=== PATIENT | female | born 1965 | race Caucasian/White ===

== ENCOUNTER 2017-09-14 08:00 | Outpatient (CLI) | payer MEDICARE ==
[~2017-09-14 08:00] MED LIST: ATROVENT 0.02%2.5 ML UPD; DILANTIN100 MG; ENULOSE10 G/15 ML PO; HYDRALAZINE HCL50 MG; KLONOPIN0.5 MG PO; LYRICA100 MG PO; LYRICA50 MG PO; PHENERGAN25 M1 PO; PRILOSEC20 MG PO; REGLAN5 MG PO; RENVELA800 MG PO; SENSIPAR60 MG; SINGULAIR10 MG PO; SYMBICORT 80-10.2 GM INH; TESSALON PERLE100 MG; XANAX0.25 MG PO; ZOCOR20 MG PO
== END 2017-09-14 11:11 | disposition home or self-care (01) ==
LOC: D.MAMMO 08:00
DX: Z12.31 Encounter for screening mammogram for malignant neoplasm of breast (principal)

== ENCOUNTER → 2017-11-18 22:43 | Outpatient (CLI) | payer MEDICARE ==
[~2017-11-18 22:43] MED LIST changes: +PEPCID40 MG PO
== END | disposition home or self-care (01) ==
LOC: D.MAMMO 10-11 13:30
DX: R92.8 Other abnormal and inconclusive findings on diagnostic imaging of breast (principal)

== ENCOUNTER → 2017-12-08 08:55 | Day surgery (SDC) | payer MEDICARE ==
[~2017-12-08] VITALS: Ht 152.4 cm; Wt 58.6 kg
--- NOTE | ~2017-12-08 | OP ---
PATIENT NAME: ADRYAN HENAO MEDICAL RECORD: [id number] :69 LOCATION:D.OPS ADMISSION DATE: SURGEON: MAREK THORPE DO DATE OF OPERATION: 12/08/2017 PROCEDURE: Colonoscopy with polypectomy. INDICATIONS FOR PROCEDURE: History of colon polyps. SCOPE: Olympus video pediatric colonoscope. MEDICATIONS: Propofol 500 mg IV per anesthesia. WITHDRAWAL TIME: 16 minutes. ESTIMATED BLOOD LOSS: Minimal. COMPLICATIONS: None. FINDINGS AND TECHNIQUE: Informed consent was given. The patient was made comfortable with the above medication. After reaching an adequate level of sedation by slow IV push, the patient was placed on her left side. A digital rectal examination was performed and was normal. The endoscope was then advanced under direct visualization through the rectum to the cecum, confirmed by the presence of the appendiceal orifice and ileocecal valve. The endoscope was slowly withdrawn and mucosa was carefully examined. Quality of the prep was good. There were 3 polyps seen on today's examination. Two were located in the transverse colon. They were both benign-appearing and sessile. They ranged in size from 4 to 6 mm in diameter. One was removed using a hot snare and the other was removed using hot forceps. Both were completely removed and retrieved. There was a third polyp located in the descending colon which was benign appearing and sessile. It measured approximately 9 mm in diameter. It was removed using a hot snare in 1 piece and completely retrieved. There were no other abnormalities visualized on today's examination other than some grade I internal hemorrhoids upon retroflexion. There were no diverticula seen today. The remainder of the examination was normal. The endoscope was withdrawn from the patient. The patient tolerated the procedure well and there were no complications. IMPRESSION: 1. Three polyps as described above were completely removed using a combination of hot forceps and hot snare. 2. Grade I internal hemorrhoids without bleeding. PLAN AND RECOMMENDATIONS: 1. Discharge home when recovery parameters are met. 2. Follow up biopsy specimen results. 3. Continue current diet. 4. Continue current medications. 5. Recall colonoscopy in 3 years for surveillance of a personal history of colon polyps. TRANSINT:[id number] Voice Confirmation ID: [id number] DOCUMENT ID: [id number] OPERATIVE REPORT [id number] ADRYAN HENAO MAREK THORPE DO at 1048 CC: [id number] DICTATION DATE: 12/08/17 1042 GRANULATING BLENDER: 12/08/17 1128 [facility] [place] 12/08/17 [facility] [address] [place] [address]
[2017-12-08 09:10] LABS: BASOPHILS 0.6 % (0-2); EOSINOPHILS 5.2 % (0-7); HEMATOCRIT 34.7 % (36.0-48.0); HEMOGLOBIN 11.5 g/dL (12-16); IMMATURE GRANULOCYTES 0.1 % (0-5); LYMPHOCYTES 30.7 % (15-50); MCHC 33.1 g/dL (31.0-37.0); MCV 96.7 fL (80.0-100.0); MEAN PLATELET VOLUME 11.5 fL (7.4-10.4); MONOCYTES 15.4 % (2-11); PLATELET COUNT 332 10x3/uL (130-400); RBC 3.59 10x6/uL (4.00-5.40); RDW 13.4 % (11.5-14.5); WBC 9.7 10x3/uL (4.8-10.8)
[2017-12-08 09:21] LABS: ANION GAP 16.8 mmol/L (8-16); CALCIUM 9.1 mg/dL (8.5-10.1); CARBON DIOXIDE 27.6 mmol/L (21.0-32.0); CREATININE - SERUM 7.4 mg/dL (0.6-1.3); POTASSIUM - SERUM 4.4 mmol/L (3.5-5.1)
[2017-12-08 09:49] VITALS: Ht 152.4 cm; Wt 58.6 kg
== END | disposition home or self-care (01) ==
LOC: D.OPS 08:55
PROVIDERS: Anesthesiology
DX: D12.4 Benign neoplasm of descending colon (principal); D12.3 Benign neoplasm of transverse colon; K64.0 First degree hemorrhoids; Z01.812 Encounter for preprocedural laboratory examination

== ENCOUNTER 2018-02-16 09:05 | Inpatient (IN) | payer MEDICARE ==
[2018-02-15 12:41] LABS: HEMATOCRIT 36.8 % (36.0-48.0); HEMOGLOBIN 12.1 g/dL (12-16); MCH 31.8 pg (26.0-34.0); MCHC 32.9 g/dL (31.0-37.0); MCV 96.6 fL (80.0-100.0); MEAN PLATELET VOLUME 11.1 fL (7.4-10.4); RBC 3.81 10x6/uL (4.00-5.40); WBC 11.5 10x3/uL (4.8-10.8)
[~2018-02-16] VITALS: Ht 152.4 cm; Wt 56.2 kg
--- NOTE | ~2018-02-16 | OP ---
PATIENT NAME: ADRYAN HENAO MEDICAL RECORD: [id number] :69 LOCATION:D.M2 D.2137 ADMISSION DATE:02/16/18 SURGEON: PAXTON CARRILLO MD DATE OF OPERATION: 02/17/2018 PREOPERATIVE DIAGNOSIS: History of a polyp with low-grade atypia of the descending colon. POSTOPERATIVE DIAGNOSIS: History of a polyp with low-grade atypia of the descending colon, inadequate prep. PROCEDURES: 1. Total colonoscopy to the cecum. 2. Hot biopsy forceps polypectomy times 1. The risks, possible complications and alternatives to the procedure were explained to the patient. She elects to proceed. She was to have this procedure performed recently; however, she was found to be very hyperkalemic, so the procedure was delayed. OPERATIVE COURSE: The patient was conveyed the operating room electively on 02/17/2018. General anesthesia was induced by the anesthesia staff. The patient was placed in the Piper position. A digital rectal examination was performed. A colonoscope was inserted through the anus. It was easily advanced to the cecum. Upon withdrawal, I irrigated and aspirated extensively. The prep was inadequate. I withdrew all the way to the rectum and advanced all the way to the cecum again, withdrew back to the rectum, advanced to the cecum again and then withdrew back to the rectum. I noted no tattooing. There was a small polyp in the descending colon, which was a 5-mm polyp and this was removed in its entirety utilizing the hot biopsy forceps polypectomy technique. A retroflexed view was obtained in the rectum. I then unretroflexed the scope and removed it under direct vision. I will plan to see the patient in my office in 2-3 weeks to discuss the results of the biopsies. I will plan for her next colonoscopy to take place with the argon plasma hemodialysis technician in the GI lab in 2 years. TRANSINT:[id number] Voice Confirmation ID: [id number] DOCUMENT ID: [id number] PAXTON CARRILLO MD at 1403 CC: MARIJA RAMIREZ MD and MAREK THORPE DO [id number] DICTATION DATE: 02/17/18 1519 CRYPTOGRAPHIC VULNERABILITY ANALYST: 02/17/18 3756 DIS IN 02/17/18 [facility] [address] [place] [address]
--- NOTE | ~2018-02-16 | MORECARE ---
CASE MANAGEMENT DISCHARGE SUMMARY PATIENT: ADRYAN HENAO ANABELL UNIT: [id number] ADM DATE: 02/16/18 AGE: 53 : 69 SEX: F ROOM/BED: D.7314 AUTHOR: PIEDAD,DOC PHYSICIAN: REFERRING PHYSICIAN: EBONI PADILLA MD DATE OF SERVICE: 02/17/18 Discharge Plan Patient Name: ADRYAN HENAO Facility: [facility]:[place] : 1965 Planned Disposition: Home Anticipated Discharge Date: 02/17/18 Discharge Date: Expected LOS: 1 Initial Reviewer: [email or web address] Initial Review Date: 02/17/2018 Generated: 02/17/18 6:18 pm Comments DCP- Discharge Planning Updated by [email or web address]: Bandar Patel on 02/17/18 4:[address] Patient Name: ADRYAN HENAO Admission Status: Elective Accout number: [id number] Admission Date: 02-16-2018 : 1965 Admission Diagnosis: Attending: EBONI PADILLA Current LOS: 1 Anticipated DC Date: 02-17-2018 Planned Disposition: Home Primary Insurance: MEDICARE A & B Discharge Planning Comments: CM MET WITH PT IN ROOM TO DISCUSS DISCHARGE PLANNING AND NEEDS. PT REPORTS LIVING AT HOME INDEPENDENTLY; ALSO IN THE HOME IS PT'S ADULT SON. PT HAS OXYGEN AT NIGHT ONLY AND NEBULIZER, PT DOES NOT KNOW NAME OF MEDICAL EQUIPMENT COMPANY. PT HAS MEDICAID PERSONAL CARE SERVICES 5 DAYS PER WEEK, 2 HOURS PER DAY FROM [place]; PT'S NIECE IS HER PAID CAREGIVER. CM DISCUSSED AVAILABILITY OF HOME HEALTH, REHAB SERVICES AND MEDICAL EQUIPMENT. PT DENIES DISCHARGE NEEDS, REPORTS HER SON WILL PICK HER UP FOR DISCHARGE HOME. I Bread Panner: Bandar Patel DCPIA - Discharge Planning Initial Assessment Updated by [email or web address]: Bandar Patel on 02/17/18 5:14 pm * Is the patient Alert and Oriented? Yes * How many steps to enter\exit or inside your home? NONE * PCP DR. RAMIREZ * Pharmacy [facility] IN [place] * Preadmission Environment Home with Family * ADLs Independent * Equipment Nebulizer Oxygen * Other Equipment OXYGEN AT NIGHT ONLY UNKNOWN PROVIDER FOR EQUIPMENT * List name and contact numbers for known caregivers / representatives who currently or will assist patient after discharge: ENRRIQUE VASQUEZ, SISTER, * Verbal permission to speak to the caregivers and representatives has been obtained from the patient. N/A * Community resources currently utilized Private Duty Care * Please name any agencies selected above. [facility] - 5 DAYS PER WEEK, 2 HOURS PER DAY PERSONAL CARE ([place]; PAID FOR BY MEDICAID SERVICES) * Additional services required to return to the preadmission environment? No * Can the patient safely return to the preadmission environment? Yes * Has this patient been hospitalized within the prior 30 days at any hospital? No Patient Name: ADRYAN HENAO Page [phone] at 1718 All edits/amendments must be made on the electronic document DICTATION DATE: 02/17/181716 JACKAROO: LUKE 02/17/181716 RPT#: [id number] DC DATE: STATUS: ADM IN [facility] [address] [place] [address] END OF REPORT
--- NOTE | ~2018-02-16 | PN ---
PATIENT:ADRYAN HENAO ANABELL MEDICAL RECORD: [id number] LOCATION:D.M2 D.213 ADMISSION DATE: 02/16/18 PROGRESS NOTE DATE OF SERVICE: 02/16/2018 The patient has end-stage renal disease and is on hemodialysis. She was found to be significantly hyperkalemic today. Upon a redraw, she was even more hyperkalemic. We are going to see if her nephrology team will admit her overnight. I will plan to perform her colonoscopy with argon plasma district sales representative for a large polyp tomorrow. I have discussed this with the patient. TRANSINT:[id number] Voice Confirmation ID: [id number] DOCUMENT ID: [id number] PAXTON CARRILLO MD at 1645 CC: [id number] DICTATION DATE: 02/16/18 1327 CURTAIN SUPERVISOR: 02/16/18 1332 DIS IN 02/17/18 [place] [place] [address]
[2018-02-16] MEDS ORDERED: NORCO 10-325 TA1 TAB PO (09:50)
[2018-02-16 10:05] VITALS: BMI 24.2
[2018-02-16 23:56] VITALS: BP 127/76; BMI 24.2
[2018-02-17 00:47] VITALS: BP 142/74
[2018-02-17 04:00] VITALS: BP 131/69
[2018-02-17 08:16] VITALS: BP 122/65
[2018-02-17 11:37] VITALS: BP 121/76
[2018-02-17 11:50] LABS: BASOPHILS 1.3 % (0-2); EOSINOPHILS 1.9 % (0-7); HEMATOCRIT 38.9 % (36.0-48.0); HEMOGLOBIN 12.7 g/dL (12-16); IMMATURE GRANULOCYTES 0.3 % (0-5); LYMPHOCYTES 41.5 % (15-50); MCH 31.4 pg (26.0-34.0); MCHC 32.6 g/dL (31.0-37.0); MEAN PLATELET VOLUME 11.7 fL (7.4-10.4); MONOCYTES 15.1 % (2-11); NEUTROPHILS 39.9 % (40-80); PLATELET COUNT 420 10x3/uL (130-400); RBC 4.05 10x6/uL (4.00-5.40); RDW 15.1 % (11.5-14.5); WBC 9.5 10x3/uL (4.8-10.8)
[2018-02-17 11:54] LABS: ANION GAP 19.8 mmol/L (8-16); CARBON DIOXIDE 26.3 mmol/L (21.0-32.0)
[2018-02-17 11:59] LABS: POTASSIUM - SERUM 5.1 mmol/L (3.5-5.1)
[2018-02-17 14:35] VITALS: Ht 152.4 cm; Wt 56.2 kg
== END 2018-02-17 18:08 | disposition home or self-care (01) | DRG 640 ==
LOC: D.OPS 09:05 → D.PAN 09:10 → D.OPS 11:15 → D.M2 14:12
PROVIDERS: Anesthesiology; Internal Medicine Nephrology
PROC: 5A1D70Z Performance of Urinary Filtration, Intermittent, Less than 6 Hours Per Day (ICD-10-PCS; principal; 2018-02-16)
PROC: 0DBM8ZZ Excision of Descending Colon, Via Natural or Artificial Opening Endoscopic (ICD-10-PCS; 2018-02-17)
DX: E87.5 Hyperkalemia (principal); N18.6 End stage renal disease; I12.0 Hypertensive chronic kidney disease with stage 5 chronic kidney disease or end stage renal disease; Z99.2 Dependence on renal dialysis; K63.5 Polyp of colon; Z86.010 Personal history of colon polyps

== ENCOUNTER 2018-12-07 13:19 | Inpatient (IN) | payer MEDICARE ==
[~2018-12-07] VITALS: Ht 152.4 cm; Wt 53.2 kg
[~2018-12-07 13:19] MED LIST changes: +NORCO 10-325 TA1 TAB PO
[2018-12-07 15:12] LABS: HEMATOCRIT 38.7 % (36.0-48.0); HEMOGLOBIN 13.1 g/dL (12-16); MCH 33.2 pg (26.0-34.0); MCHC 33.9 g/dL (31.0-37.0); PLATELET COUNT 127 10x3/uL (130-400); RBC 3.95 10x6/uL (4.00-5.40); RDW 13.9 % (11.5-14.5); WBC 31.9 10x3/uL (4.8-10.8)
[2018-12-07 15:56] LABS: EOSINOPHILS 6 % (0-7); LYMPHOCYTES 5 % (15-50); NEUTROPHILS 87 % (40-80)
[2018-12-07 15:57] LABS: PLATELET ESTIMATE NORMAL
--- NOTE | 2018-12-07 16:00 | NUR ---
NURSE ATTEMPTED TO INSERT PIV X2 AND FAILED. VASCULAR ACCESS NURSE CONSULTED. VASCULAR ACCESS NURSE WAS ABLE TO PLACE 22G PIV IN RIGHT THUMB AND 20G PIV IN PT RIGHT UPPER ARM.
[2018-12-07 16:59] LABS: ANION GAP 21.7 mmol/L (8-16); BILIRUBIN - TOTAL 0.61 mg/dL (0.2-1.3); CALCIUM 10.7 mg/dL (8.5-10.1); CARBON DIOXIDE 22.8 mmol/L (21.0-32.0); CREATININE - SERUM 9.1 mg/dL (0.6-1.3); POTASSIUM - SERUM 4.5 mmol/L (3.5-5.1); PROTEIN - SERUM 6.8 g/dL (6.4-8.2)
--- NOTE | 2018-12-07 19:35 | NUR ---
REPORT RECEIVED FROM DAY SHIFT, PT CARE ASSUMED. INTRODUCED SELF AND WROTE NAME ON BOARD. PT LYING IN BED, AAOX4. DENIES PAIN OR ANY OTHER NEEDS AT THIS TIME. BED IN LOWEST POSITION, SR X2, CALL LIGHT WITHIN REACH. WILL CONTINUE TO MONITOR.
[2018-12-07 20:00] VITALS: BP 108/51
--- NOTE | 2018-12-07 21:23 | NUR ---
NIGHT TIME MEDS ADMINISTERED, PER ORDER. PT DENIES ANY OTHER NEEDS AT THIS TIME. BED IN LOWEST POSITION, SR X1, CALL LIGHT WITHIN REACH. WILL CONTINUE TO MONITOR.
[2018-12-08] VITALS: BP 106/56
--- NOTE | 2018-12-08 01:42 | NUR ---
PT LYING IN BED WITH EYES CLOSED, RR EVEN AND NONLABORED, NO S/S OF DISTRESS, AROUSES EASILY TO VOICE. DENIES ANY NEEDS AT THIS TIME. BED IN LOWEST POSITION, SR X1, CALL LIGHT AND GLASSES WITHIN REACH. WILL CONTINUE TO MONITOR.
[2018-12-08 04:00] VITALS: BP 104/64
[2018-12-08 07:11] LABS: ALBUMIN 2.6 g/dL (3.4-5.0); ANION GAP 18.2 mmol/L (8-16); BILIRUBIN - TOTAL 0.54 mg/dL (0.2-1.3); CALCIUM 10.8 mg/dL (8.5-10.1); CARBON DIOXIDE 23.6 mmol/L (21.0-32.0); CREATININE - SERUM 10.3 mg/dL (0.6-1.3); MAGNESIUM - SERUM 2.3 mg/dL (1.8-2.4); PHENYTOIN (DILANTIN) 4.6 ug/mL (10.0-20.0); POTASSIUM - SERUM 4.8 mmol/L (3.5-5.1); PROTEIN - SERUM 6.7 g/dL (6.4-8.2)
[2018-12-08 07:20] LABS: BASOPHILS 0.2 % (0-2); EOSINOPHILS 6.2 % (0-7); HEMATOCRIT 35.4 % (36.0-48.0); HEMOGLOBIN 12.1 g/dL (12-16); IMMATURE GRANULOCYTES 0.3 % (0-5); LYMPHOCYTES 5.1 % (15-50); MCH 32.6 pg (26.0-34.0); MCHC 34.2 g/dL (31.0-37.0); MCV 95.4 fL (80.0-100.0); MEAN PLATELET VOLUME 13.3 fL (7.4-10.4); MONOCYTES 4.9 % (2-11); NEUTROPHILS 83.3 % (40-80); PLATELET COUNT 195 10x3/uL (130-400); RBC 3.71 10x6/uL (4.00-5.40); RDW 13.8 % (11.5-14.5); WBC 26.2 10x3/uL (4.8-10.8)
--- NOTE | 2018-12-08 08:00 | NUR ---
PT RESTING IN BED, SHIFT ASSESSMENT PERFORMED. DENIES ANY NEEDS AT THIS TIME, WILL CONT TO FOLLOW POC
[2018-12-08 09:21] VITALS: BP 116/61
--- NOTE | 2018-12-08 10:03 | NUR ---
PT COMPLAINING OF PAIN TO RIGHT UPPER ARM PIV. WHEN NURSE ATTACHED NS FLUSH TO PIV PT BEGAIN YELLING OUT IN PAIN BEFORE NURSE PUSHED THE NS. PIV REMOVED WITH CATHETER TIP INTACT.
--- NOTE | 2018-12-08 10:19 | NUR ---
PT LEFT FLOOR FOR DIALYSIS
[2018-12-08 11:07] VITALS: BMI 23.0
--- NOTE | 2018-12-08 12:12 | NUR ---
OT NOTE: ATTEMPTED EVAL HOWEVER, PT GONE FOR DIALYSIS. WILL ATTEMPT LATER. JOHNNY GODOY, OTR/L
--- NOTE | 2018-12-08 14:45 | NUR ---
PT RETURNED TO FLOOR FROM DIALYSIS
--- NOTE | 2018-12-08 15:30 | NUR ---
PIV TO PT RIGHT THUMB INFILTRATED, PIV REMOVED WITH CATHETER TIP INTACT
[2018-12-08 16:05] VITALS: BP 95/41
--- NOTE | 2018-12-08 18:18 | NUR ---
MARISA OLMSTEAD RENAL MANAGER OF COMPLIANCE DUE TO PT NOT BEING ABLE TO HAVE HER IV ANTIBIOTICS. NEW ORDER RECIEVED TO GIVE A ONE TIME DOSE OF TAZICEF IM AND THEY WILL LOOK AT HER CHART TOMORROW.
[2018-12-08 20:00] VITALS: BP 104/54
--- NOTE | 2018-12-08 20:00 | NUR ---
ALERT RESTING IN BED, DENIES PAIN OR NEEDS AT THIS TIME, SEE SHIFT ASSESSMENT, CALL LIGHT IN REACH
--- NOTE | 2018-12-08 23:18 | NUR ---
VALIUM GIVEN PER REQUEST FOR LEGS RESTLESS AND JUST UNABLE TO RELAX AND SLEEP
[2018-12-09] VITALS: BP 105/58
[2018-12-09 04:00] VITALS: BP 118/70
[2018-12-09 05:42] LABS: BASOPHILS 0.3 % (0-2); EOSINOPHILS 13.1 % (0-7); HEMATOCRIT 35.4 % (36.0-48.0); HEMOGLOBIN 12.2 g/dL (12-16); IMMATURE GRANULOCYTES 0.3 % (0-5); LYMPHOCYTES 16.1 % (15-50); MCHC 34.5 g/dL (31.0-37.0); MCV 95.7 fL (80.0-100.0); MEAN PLATELET VOLUME 13.6 fL (7.4-10.4); MONOCYTES 9.4 % (2-11); NEUTROPHILS 60.8 % (40-80); PLATELET COUNT 195 10x3/uL (130-400); RDW 13.7 % (11.5-14.5)
[2018-12-09 06:02] LABS: WBC 11.6 10x3/uL (4.8-10.8)
[2018-12-09 06:04] LABS: ALBUMIN 2.6 g/dL (3.4-5.0); ANION GAP 16.2 mmol/L (8-16); BILIRUBIN - TOTAL 0.42 mg/dL (0.2-1.3); CALCIUM 9.6 mg/dL (8.5-10.1); CARBON DIOXIDE 27.9 mmol/L (21.0-32.0); MAGNESIUM - SERUM 2.2 mg/dL (1.8-2.4); POTASSIUM - SERUM 4.1 mmol/L (3.5-5.1); PROTEIN - SERUM 6.4 g/dL (6.4-8.2)
[2018-12-09 06:08] LABS: CREATININE - SERUM 7.3 mg/dL (0.6-1.3)
[2018-12-09 08:37] VITALS: BP 107/65
--- NOTE | 2018-12-09 12:15 | NUR ---
PT CAME OUT OF ROOM STATING [facility] HAD CALLED HER AND THEY HAVE A KIDNEY FOR HER AND SHE HAS TO BE THERE BY 1500 TODAY. PAGED DON ABOUT A DISCHARGE ORDER.
[2018-12-09 12:25] VITALS: BP 115/74
[2018-12-09] MEDS ORDERED: OMNICEF300 MG PO (13:02)
--- NOTE | 2018-12-09 13:08 | NUR ---
PAGE INTO DON MEDINA APN FOR D/C ORDERS PATIENT STATES SHE NEEDS TO GET TO [facility] FOR KIDNEY TRANPLANT TODAY. AWAITING CALL BACK.
--- NOTE | 2018-12-09 13:45 | NUR ---
DISCHARGE INSTRUCTIONS REVIEWED WITH PT AND VERBALIZES UNDERSTANDING WITH NO QUESTIONS. LEFT FLOOR VIA W/C WITH ALL PERSONAL BELONGINGS AND LEFT FACILITY VIA PRIVATE VEHICLE WITH FAMILY MEMBER.
--- NOTE | 2018-12-09 15:08 | MORECARE ---
CASE MANAGEMENT DISCHARGE SUMMARY PATIENT: ADRYAN HENAO ANABELL UNIT: [id number] ADM DATE: 12/07/18 AGE: 53 : 69 SEX: F ROOM/BED: D.2101 AUTHOR: ASIA HERBERT PHYSICIAN: REFERRING PHYSICIAN: NBA BRYAN MD DATE OF SERVICE: 12/09/18 Discharge Plan Patient Name: ADRYAN HENAO Facility: [facility]:[place] : 1965 Planned Disposition: Home Anticipated Discharge Date: 12/09/18 Discharge Date: 12/09/2018 Expected LOS: 2 Initial Reviewer: [email or web address] Initial Review Date: 12/09/2018 Generated: 12/09/18 4:08 pm Coverage Notice Reviewer: [id number] - Bandar Patel Notice Issued Date-Time: 12/09/2018 12:35 Notice Type: IM Discharge Notice Notice Delivered To: Patient Relationship to Patient: Model Maker Scale Name: Delivery Method: HAND - Hand Delivered Fidelina Days: Prior Verbal Notification: Recipient Understood Notice: Yes Recipient Signature: Yes Med Rec Note Co-signed by Attending: Coverage Notice Comment: Patient Name: ADRYAN HENAO Page [phone] at 1508 All edits/amendments must be made on the electronic document DICTATION DATE: 12/09/18 1508 NEWSPAPER CLIPPER: LUKE 12/09/18 1508 RPT#: [id number] DC DATE:12/09/18 STATUS: DIS IN [facility] [address] [place] [address] END OF REPORT
--- NOTE | 2018-12-09 15:27 | MORECARE ---
CASE MANAGEMENT DISCHARGE SUMMARY PATIENT: ADRYAN HENAO ANABELL UNIT: [id number] ADM DATE: 12/07/18 AGE: 53 : 69 SEX: F ROOM/BED: D.2105 AUTHOR: PIEDAD,DOC PHYSICIAN: REFERRING PHYSICIAN: NBA BRYAN MD DATE OF SERVICE: 12/09/18 Discharge Plan Patient Name: ADRYAN HENAO Facility: [facility]:[place] : 1965 Planned Disposition: Home Anticipated Discharge Date: 12/09/18 Discharge Date: 12/09/2018 Expected LOS: 2 Initial Reviewer: [email or web address] Initial Review Date: 12/09/2018 Generated: 12/09/18 4:27 pm DCPIA - Discharge Planning Initial Assessment Updated by [id number]: Bandar Patel on 12/09/18 3:24 pm * Is the patient Alert and Oriented? Yes * How many steps to enter\exit or inside your home? NONE * PCP DR. RAMIREZ * Pharmacy [facility] IN [place] * Preadmission Environment Home with Family * ADLs Independent * Equipment Oxygen * Other Equipment HOME OXYGEN ONLY PROVIDER UNKNOWN * List name and contact numbers for known caregivers / representatives who currently or will assist patient after discharge: ENRRIQUE VASQUEZ, , * Verbal permission to speak to the caregivers and representatives has been obtained from the patient. N/A * Community resources currently utilized Other Private Duty Care * Please name any agencies selected above. OUTPATIENT DIALYSIS, MWF [facility], 5 DAYS PER WEEK,4 HOURS PER DAY * Additional services required to return to the preadmission environment? No * Can the patient safely return to the preadmission environment? Yes * Has this patient been hospitalized within the prior 30 days at any hospital? No Coverage Notice Reviewer: [id number] - Bandar Patel Notice Issued Date-Time: 12/09/2018 12:35 Notice Type: IM Discharge Notice Notice Delivered To: Patient Relationship to Patient: Calender Roll Operator Name: Delivery Method: HAND - Hand Delivered Fidelina Days: Prior Verbal Notification: Recipient Understood Notice: Yes Recipient Signature: Yes Med Rec Note Co-signed by Attending: Coverage Notice Comment: Last DP export: 12/09/18 2:08 pm Patient Name: ADRYAN HENAO Page [id number] at 1527 All edits/amendments must be made on the electronic document DICTATION DATE: 12/09/181526 INTERNAL COMMUNICATIONS INTERN: LUKE 12/09/18 152 RPT#: [id number] DC DATE:12/09/18 STATUS: DIS IN [facility] [address] [place] [address] END OF REPORT
--- NOTE | 2018-12-09 15:37 | MORECARE ---
CASE MANAGEMENT DISCHARGE SUMMARY PATIENT: ADRYAN HENAO ANABELL UNIT: [id number] ADM DATE: 12/07/18 AGE: 53 : 69 SEX: F ROOM/BED: D.1196 AUTHOR: PIEDAD,DOC PHYSICIAN: REFERRING PHYSICIAN: NBA BRYAN MD DATE OF SERVICE: 12/09/18 Discharge Plan Patient Name: ADRYAN HENAO Facility: [facility]:[place] : 1965 Planned Disposition: Home Anticipated Discharge Date: 12/09/18 Discharge Date: 12/09/2018 Expected LOS: 2 Initial Reviewer: [email or web address] Initial Review Date: 12/09/2018 Generated: 12/09/18 4:37 pm Comments DCP- Discharge Planning Updated by [email or web address]: Bandar Patel on 12/09/18 2:[address] Patient Name: ADRYAN HENAO Admission Status: Elective Accout number: [id number] Admission Date: 12-07-2018 : 1965 Admission Diagnosis: Attending: NBA CHAVEZ Current LOS: 2 Anticipated DC Date: 12-09-2018 Planned Disposition: Home Primary Insurance: MEDICARE A & B Discharge Planning Comments: CM MET WITH PT IN ROOM TO DISCUSS DISCHARGE PLANNING AND NEEDS. PT REPORTS LIVING AT HOME INDEPENDENTLY, ALSO IN THE HOME IS PT'S ADULT SON. PT HAS NEBULIZER AND OXYGEN THAT PT WEARS AT NIGHT WITH NO MEDICAL EQUIPMENT PROVIDER. PT HAS PERSONAL CARE SERVICES ASSISTING IN THE HOME THROUGH [employer], 5 DAYS PER WEEK FOR ABOUT 20 OR 24 HOURS PER WEEK. PT REPORTS THAT SHE NEEDS DISCHARGED SHE NEEDS TO GET TO [facility] SHE MAY BE GETTING A KIDNEY. PT REPORTS HER BROTHER IS ON THE WAY TO PICK HER UP. CM ASKED ABOUT DIALYSIS, PT CURRENLTY ON WEDNESDAY, DAY WEDNESDAY SCHEDULE; PT RECEIVED TWO PHONE CALLS AND BEGAN TALKING ON THE PHONE. AFTER GETTING OFF THE PHONE, PT ASKED CM TO CHECK ON HER DISCHARGE SHE NEEDS TO LEAVE AND GET TO [facility] IN [place]. CM DISCUSSED AVAILABILITY OF HOME HEALTH, REHAB SERVICES AND MEDICAL EQUIPMENT. PT DENIES DISCHARGE NEEDS,IMPORTANT MESSAGE FROM MEDICARE PROVIDED AND EXPLAINED. BRUSH OPERATOR NURSE NOTIFIED. [facility]: Bandar Patel DCPIA - Discharge Planning Initial Assessment Updated by [email or web address]: Bandar Patel on 12/09/18 3:24 pm * Is the patient Alert and Oriented? Yes * How many steps to enter\exit or inside your home? NONE * PCP DR. RAMIREZ * Pharmacy [facility] IN [place] * Preadmission Environment Home with Family * ADLs Independent * Equipment Oxygen * Other Equipment HOME OXYGEN ONLY PROVIDER UNKNOWN * List name and contact numbers for known caregivers / representatives who currently or will assist patient after discharge: ENRRIQUE VASQUEZ, SISTER, * Verbal permission to speak to the caregivers and representatives has been obtained from the patient. N/A * Community resources currently utilized Other Private Duty Care * Please name any agencies selected above. OUTPATIENT DIALYSIS, MWF [facility], 5 DAYS PER WEEK,4 HOURS PER DAY * Additional services required to return to the preadmission environment? No * Can the patient safely return to the preadmission environment? Yes * Has this patient been hospitalized within the prior 30 days at any hospital? No Coverage Notice Reviewer: [id number] - Bandar Patel Notice Issued Date-Time: 12/09/2018 12:35 Notice Type: IM Discharge Notice Notice Delivered To: Patient Relationship to Patient: Law Firm Consultant Name: Delivery Method: HAND - Hand Delivered Fidelina Days: Prior Verbal Notification: Recipient Understood Notice: Yes Recipient Signature: Yes Med Rec Note Co-signed by Attending: Coverage Notice Comment: Last DP export: 12/09/18 2:27 pm Patient Name: ADRYAN HENAO Page [phone] at 1537 All edits/amendments must be made on the electronic document DICTATION DATE: 12/09/187 PEDIATRIC ORTHODONTIST: LUKE 12/09/18 1537 RPT#: [id number] DC DATE:12/09/18 STATUS: DIS IN [facility] [address] [place] [address] END OF REPORT
--- NOTE | 2018-12-12 08:39 | EC ---
PATIENT:ADRYAN HENAO DATE OF SERVICE: 12/07/18 SEX: F MEDICAL RECORD: [id number] DATE OF : [birth year] LOCATION:D.M2 D.210 AGE OF PATIENT: 53 ADMISSION DATE: 12/07/18 REFERRING PHYSICIAN: INTERPRETING PHYSICIAN: SRI SILVA MD ECHOCARDIOGRAM REPORT ECHO CHARGES 4 ECHO COMPLETE Date: 12/08/18 CLINICAL DIAGNOSIS: ELEVATED WBC/DIALYSIS PATIENT ECHOCARDIOGRAPHIC MEASUREMENTS (adult normal given) AC root (d.<3.7cm) 3.3 cm LV Septum d (<1.2 cm> 1.0 cm Valve Excursion 1.1 cm LV Septum (systole) 1.2 cm Left Atria (s.<4.0cm> 4.4 cm LVPW d(<1.2cm) 1.0 cm RV (d.<2.3cm) 3.6 cm LVPW (sytole) 1.3 cm LV diastole(<5.6CM) 5.9 cm MV E-F(>70mm/sec) cm LV systole 3.7 cm LVOT Diameter 1.6 cm MV exc.(>10mm) 1.5 cm Est.ejection fraction (50-75%) % DOPPLER: LVIT cm/sec A 133 cm/sec E 116 cm/sec LA cm/sec RVSP 33 mmHg LVOT 112 cm/sec AOP1/2T m/s Asc. Ao 202 cm/sec RVOT 97 cm/sec RA cm/sec PA 114 cm/sec AV Gradient Peak 16.28mmHg AV Mean 9.36 mmHg AV Area 1.3 cm MV Gradient Peak 8.62 mmHg MV Mean 5.18 mmHg MV Area cm COMMENTS: Health Information Provider: 2 BERTHA PAL[facility] Chassis Mechanic: 3 Dr. Bennett TAPE# PACS Pericardial Effusion N DATE OF SERVICE: Adequate 2D, color flow imaging, spectral Doppler, and M-Mode. No LVH. LV internal dimensions are normal. Wall motion is normal. EF is greater than or equal to 55%. Aortic valve is sclerotic; however, there is no evidence of stenosis by Doppler interrogation. Left atrium is mildly dilated at 4.4 cm. Mitral valve shows no prolapse. Trace MR. Right-sided chambers grossly normal. Mild TR with color flow imaging. ECHOCARDIOGRAM REPORT [id number] ADRYAN HENAO ANABELL TRANSINT:[id number] Voice Confirmation ID: [id number] DOCUMENT ID: [id number] SRI SILVA MD at 0839 CC: [id number] DICTATION DATE: 12/08/181501 MANAGER SIMULATION: 12/08/18 2247 DIS IN 12/09/18 [place] [id number] [place] [id number]
[2018-12-24 12:42] VITALS: Ht 152.4 cm; Wt 53.2 kg
== END 2018-12-09 13:50 | disposition home or self-care (01) | DRG 871 ==
LOC: D.M2 13:19
PROVIDERS: Family Medicine; Family Medicine Adult Medicine; ADMIT Family Medicine; ATTEND Family Medicine
DX: A41.9 Sepsis, unspecified organism (principal); N18.6 End stage renal disease; J18.9 Pneumonia, unspecified organism; I12.0 Hypertensive chronic kidney disease with stage 5 chronic kidney disease or end stage renal disease; N25.81 Secondary hyperparathyroidism of renal origin; R19.7 Diarrhea, unspecified; Z99.2 Dependence on renal dialysis; D63.1 Anemia in chronic kidney disease; J44.9 Chronic obstructive pulmonary disease, unspecified; F41.9 Anxiety disorder, unspecified; G40.909 Epilepsy, unspecified, not intractable, without status epilepticus; K21.9 Gastro-esophageal reflux disease without esophagitis; G25.81 Restless legs syndrome; E78.5 Hyperlipidemia, unspecified; M19.90 Unspecified osteoarthritis, unspecified site; E87.5 Hyperkalemia; E83.52 Hypercalcemia

== ENCOUNTER 2019-01-24 08:00 | Outpatient (CLI) | payer MEDICARE ==
[2018-12-24 12:42] VITALS: BMI 24.2
[~2019-01-24 08:00] MED LIST changes: +OMNICEF300 MG PO
== END 2019-01-24 23:59 | disposition home or self-care (01) ==
LOC: D.MAMMO 08:00
PROVIDERS: ATTEND Family Medicine
DX: Z12.31 Encounter for screening mammogram for malignant neoplasm of breast (principal)